=== PATIENT | female | born 1955 | race Caucasian/White ===

== ENCOUNTER 2020-11-01 19:17 | Emergency (ER) | payer SELFPAY ==
[~2020-11-01] VITALS: Ht 157.5 cm; Wt 46.4 kg
--- NOTE | 2020-11-01 19:53 | NUR ---
pt came into ed tonight for pressure in ears. states it has been present [id number] and feels pressurized and as if there is liquid in ears. pt resting on gurney, denies hx of htn, iv placed, labs drawn, daughter at bs, bed in lowest, rails engaged, call light on lap, nad. pt reports slight head pressure and dizziness. denies any other symptoms at this time. placed on spo2/bp/ecg monitoring. provided warm blankets for comfort, gross neuro intact, wctm.
[2020-11-01] MEDS ORDERED: CARBAMIDE PEROXIDE EAR DROPS 6.5%, 15ML LEFT EAR ONE (20:00)
[2020-11-01] MEDS ORDERED: CARBAMIDE PEROXIDE EAR DROPS 6.5%, 15ML ONE (20:25)
--- NOTE | 2020-11-01 20:30 | NUR ---
IRRIGATION OF EAR IN PROGRESS. PT NAD, TOLERATING WELL, HPERTENSIVE ON MONITOR. WCTM.
--- NOTE | 2020-11-01 21:08 | NUR ---
irrigation completed and successful pt nad, resting on gurney after walking to restroom with a smooth and steady gait, denies additional needs at this time. wctm.
[2020-11-01] MEDS ORDERED: LISINOPRIL 10 MG TABLET ONE (21:24)
[2020-11-01 21:26] VITALS: BP 154/85
[2020-11-01] MEDS ORDERED: LISINOPRIL 10 MG TABLET PO ONE (21:30)
--- NOTE | 2020-11-01 21:45 | NUR ---
Patient given discharge instructions and they have confirmed that they understand the instructions. Patient ambulatory with steady gait. nad, reports she will follow up with pcp. denies additional questions or needs, no personal belongings left in room after dc.
== END 2020-11-01 21:45 | disposition home or self-care (01) ==
LOC: ED 21:00
DX: H61.22 Impacted cerumen, left ear (principal); I10 Essential (primary) hypertension; F17.200 Nicotine dependence, unspecified, uncomplicated
CPT/HCPCS: 69210; 93005; 99284